=== PATIENT | female | born 2000 | race Hispanic/Latino ===

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

== ENCOUNTER 2018-05-25 21:40 | Emergency (ER) | payer MEDICAID ==
[2018-05-25 22:11] LABS: #Basophils 0.1 thou/uL (0.0-0.2); #Eosinphils 0.1 thou/uL (0.0-0.7); #Lymphocytes 2.4 thou/uL (1.20-3.40); #Monocytes 0.3 thou/uL (0.11-0.59); %Basophils 0.8 % (0.0-1.0); %Eosinophils 1.1 % (0.0-10.0); %Lymphocytes 35.2 % (28.0-48.0); %Monocytes 4.5 % (0.0-4.0); %Neutrophils 58.5 % (31.0-61.0); Hemoglobin 15.9 g/dL (12.0-16.0); Mean Corpuscular HGB CONC 32.9 g/dL (32.0-36.0); Mean Corpuscular Hemoglobin 30.7 pg (25.0-35.0); Mean Corpuscular Volume 93.4 fL (78.0-98.0); Mean Platelet Volume 11.2 fL (7.4-10.4); Platelet Count 233 thou/uL (130-400); RBC Distribution Width 12.2 % (11.5-14.5); Red Blood Cell (RBC) Count 5.18 mill/uL (4.00-5.20); White Blood Cell (WBC) Count 6.8 thou/uL (4.8-10.8)
[2018-05-25 22:12] LABS: Bilirubin Negative (Negative); Blood, Urine Negative (Negative); Clarity CLOUDY (Clear); Glucose, Urine (Dipstick) >=1000 mg/dL (Negative); Leukocyte Small (Negative); Nitrite Negative (Negative); Protein, Urine (Dipstick) Negative (Neg-Trace); Specific Gravity, Urine 1.032 (1.002-1.036); Urobilinogen 0.2 mg/dL (0.2-1.0)
[2018-05-25 22:14] LABS: Bacteria/HPF 1+ HPF (None Seen); Hyaline Casts/LPF 0-3 HYALINE CAST LPF (0-3 Hyaline); Pathc Cast-AUWi Flag 0.29 (0-2.49); Pregnancy Test - Urine (BHCG) Negative (Negative); Pregu Control Background? CLEAR/WHITE (CLR/WHITE); Pregu Control Bar Appear? YES (CONTROL BAR); RBC/HPF 0-3 HPF (0-3); Specific Gravity 1.032 (1.002-1.036); Squamous Epithelial 0-3 HPF (0-3); Yeast-AUWi Flag 19.6 (0-25.0)
[2018-05-25 22:31] LABS: ALT (SGPT) 11 U/L (8-55); AST (SGOT) 17 U/L (5-34); Albumin 4.4 g/dL (3.5-5.0); Alkaline Phosphatase 118 U/L (40-150); Anion Gap 27 mmol/L (10-20); BUN (Urea Nitrogen) 12 mg/dL (7.0-18.7); Bilirubin, Total 0.4 mg/dL (0.2-1.2); Calc. Creatinine Clearance 0 mL/min (70-130); Calcium 9.5 mg/dL (7.8-10.44); Carbon Dioxide 12 mmol/L (22-29); Chloride 96 mmol/L (98-107); Estimated GFR-MDRD 44; Globulin 3.8 g/dL (2.4-3.5); Glucose 446 mg/dL (70-105); Lipase 15 U/L (8-78); Potassium 4.3 mmol/L (3.5-5.1); Protein, Total 8.2 g/dL (6.0-8.3); Sodium 131 mmol/L (136-145)
[2018-05-25] MEDS ORDERED: Insulin Regular 300 UNITS/3 ML VIAL ONE (23:39)
[2018-05-25] MEDS ORDERED: Ondansetron PF 4 MG/2 ML Vial ONE (23:39)
[2018-05-25] MEDS ORDERED: cefTRIAXone\\ROCEPHIN 1 GM VIAL ONE (23:39)
== END 2018-05-26 01:34 | disposition home or self-care (01) ==
LOC: ERS 21:40
DX: N39.0 Urinary tract infection, site not specified (principal); E10.65 Type 1 diabetes mellitus with hyperglycemia
CPT/HCPCS: 36415; 36416; 80053; 81003; 81015; 81025; 83690; 85025; 87086; 96361; 96365; 96375; J0696; J1815; J2405

== ENCOUNTER 2018-09-23 00:55 | Emergency (ER) | payer MEDICAID ==
[2018-09-23] MEDS ORDERED: Ciprofloxacin HCL/Dexameth Otic Drops 7.5 ml Bottle ONE (01:13)
[2018-09-23] MEDS ORDERED: Ibuprofen 200 MG TAB ONE (01:13)
== END 2018-09-23 01:24 | disposition home or self-care (01) ==
LOC: ERS 00:55
DX: H60.91 Unspecified otitis externa, right ear (principal); H66.91 Otitis media, unspecified, right ear; E10.9 Type 1 diabetes mellitus without complications
CPT/HCPCS: 99282

== ENCOUNTER 2018-10-13 20:40 | Emergency (ER) | payer MEDICAID ==
[2018-10-13] MEDS ORDERED: Ondansetron ODT 4 MG TAB ONE (21:18)
[2018-10-13 21:53] LABS: Bilirubin Negative (Negative); Blood, Urine Negative (Negative); Clarity CLEAR (Clear); Glucose, Urine (Dipstick) >=1000 mg/dL (Negative); Leukocyte Negative (Negative); Nitrite Negative (Negative); Protein, Urine (Dipstick) Negative (Neg-Trace); Specific Gravity, Urine 1.038 (1.002-1.036); Urobilinogen 0.2 mg/dL (0.2-1.0)
[2018-10-13 22:31] LABS: #Basophils 0.1 thou/uL (0.0-0.2); #Eosinphils 0.1 thou/uL (0.0-0.7); #Lymphocytes 1.9 thou/uL (1.20-3.40); #Monocytes 0.3 thou/uL (0.11-0.59); #Neutrophils 2.6 thou/uL (1.40-6.50); %Basophils 1.3 % (0.0-1.0); %Eosinophils 1.6 % (0.0-10.0); %Lymphocytes 38.1 % (28.0-48.0); %Monocytes 5.7 % (0.0-4.0); %Neutrophils 53.4 % (31.0-61.0); Hemoglobin 14.1 g/dL (12.0-16.0); Mean Corpuscular HGB CONC 33.8 g/dL (32.0-36.0); Mean Corpuscular Hemoglobin 30.7 pg (25.0-35.0); Mean Corpuscular Volume 90.8 fL (78.0-98.0); Mean Platelet Volume 11.3 fL (7.4-10.4); Platelet Count 196 thou/uL (130-400); RBC Distribution Width 11.8 % (11.5-14.5); Red Blood Cell (RBC) Count 4.58 mill/uL (4.00-5.20); White Blood Cell (WBC) Count 4.9 thou/uL (4.8-10.8)
[2018-10-13 22:35] LABS: Base Excess-Venous 0.9 mmol/L (-2.0 to 3.0); Bicarbonate (HCO3v) 26.1 mmol/L (22.0-28.0); CO2 Tension (PvCO2) 42.5 mmHg (40.0-50.0); Calcium, Ionized 1.15 mmol/L (See Comments:); Chloride 98 mmol/L (98-107); Hemoglobin - Calc 14.1 g/dL (12.0-16.0); O2 Tension (PvO2) 64.1 mmHg (35.0-45.0); Potassium 3.6 mmol/L (3.5-5.1); Sodium 134 mmol/L (138-145); T. Carbon Dioxide 27.4 mmol/L (22.0-28.0); pH (Venous) 7.395 (7.320-7.430); vO2 Saturation-calc 91.9 % (60.0-85.0)
[2018-10-13 22:53] LABS: ALT (SGPT) 11 U/L (8-55); AST (SGOT) 14 U/L (5-34); Albumin 4.1 g/dL (3.5-5.0); Alkaline Phosphatase 95 U/L (40-150); Anion Gap 15 mmol/L (10-20); BUN (Urea Nitrogen) 12 mg/dL (7.0-18.7); Bilirubin, Total 0.4 mg/dL (0.2-1.2); Calc. Creatinine Clearance 0 mL/min (70-130); Calcium 9.7 mg/dL (7.8-10.44); Carbon Dioxide 27 mmol/L (22-29); Chloride 98 mmol/L (98-107); Estimated GFR-MDRD 84; Glucose 397 mg/dL (70-105); Potassium 3.8 mmol/L (3.5-5.1); Protein, Total 7.1 g/dL (6.0-8.3); Sodium 136 mmol/L (136-145)
== END 2018-10-14 00:03 | disposition home or self-care (01) ==
LOC: ERS 20:40
DX: E10.649 Type 1 diabetes mellitus with hypoglycemia without coma (principal); R11.2 Nausea with vomiting, unspecified
CPT/HCPCS: 36416; 80053; 81003; 82010; 82330; 82803; 85025; 94760; 96360; Q0162

== ENCOUNTER 2019-04-28 14:39 | Inpatient (IN) | payer MEDICAID, OTHER, SELFPAY ==
[2019-04-28] MEDS ORDERED: Insulin Regular 300 UNITS/3 ML VIAL ONE (15:24)
[2019-04-28 15:33] LABS: Hemoglobin 15.2 g/dL (12.0-16.0); Mean Corpuscular HGB CONC 33.2 g/dL (32.0-36.0); Mean Corpuscular Hemoglobin 31.1 pg (27.0-31.0); Mean Corpuscular Volume 93.6 fL (78.0-98.0); Mean Platelet Volume 12.2 fL (7.4-10.4); Platelet Count 184 thou/uL (130-400); RBC Distribution Width 13.1 % (11.5-14.5); Red Blood Cell (RBC) Count 4.89 mill/uL (4.20-5.40); White Blood Cell (WBC) Count 8.7 thou/uL (4.8-10.8)
[2019-04-28 15:48] LABS: Pregnancy Test - Urine (BHCG) Negative (Negative); Pregu Control Background? CLEAR/WHITE (CLR/WHITE); Pregu Control Bar Appear? YES (CONTROL BAR); Specific Gravity 1.019 (1.002-1.036)
[2019-04-28 15:49] LABS: #Lymphocytes 1.3 thou/uL (1.20-3.40); #Monocytes 0.4 thou/uL (0.11-0.59); #Neutrophils 6.9 thou/uL (1.40-6.50); %Basophils 0.3 % (0.0-1.0); %Eosinophils 0.5 % (0.0-10.0); %Lymphocytes 15.2 % (21.0-51.0); %Monocytes 4.6 % (0.0-10.0); %Neutrophils 79.4 % (42.0-75.0)
[2019-04-28 15:50] LABS: ALT (SGPT) 10 U/L (8-55); AST (SGOT) 13 U/L (5-34); Albumin 4.2 g/dL (3.5-5.0); Alkaline Phosphatase 105 U/L (40-110); BUN (Urea Nitrogen) 14 mg/dL (7.0-18.7); Bilirubin, Total 0.3 mg/dL (0.2-1.2); Calc. Creatinine Clearance 0 mL/min (70-130); Calcium 9.3 mg/dL (7.8-10.44); Chloride 94 mmol/L (98-107); Estimated GFR-MDRD 47; Globulin 3.2 g/dL (2.4-3.5); Large Platelets SLIGHT; MDiff Complete? YES; Platelet Morphology Comment Appears Adequate; Potassium 4.8 mmol/L (3.5-5.1); Protein, Total 7.4 g/dL (6.0-8.3); Sodium 126 mmol/L (136-145)
[2019-04-28 15:51] LABS: Squamous Epithelial 0-3 HPF (0-3)
[2019-04-28 15:52] LABS: Bacteria/HPF 1+ HPF (None Seen)
[2019-04-28 15:53] LABS: Bilirubin Negative (Negative); Blood, Urine Negative (Negative); Clarity Clear (Clear); Glucose, Urine (Dipstick) Greater than 1000 mg/dL (Negative); Leukocyte 250 Leu/uL (Negative); Nitrite Negative (Negative); Protein, Urine (Dipstick) Negative (Neg-Trace); Urobilinogen Normal mg/dL (Less than 2)
[2019-04-28 15:59] LABS: Carbon Dioxide Less than 8 mmol/L (22-29); Glucose 728 mg/dL (70-105)
[2019-04-28] MEDS ORDERED: Insulin Regular 100 units/100 ml in NS IVPB SCH (16:15)
--- NOTE | 2019-04-28 16:24 | PDOC.FPRHP ---
- History of Present Illness Chief Complaint: Abdominal Pain History of Present Illness: Pt is 19-yo F w/ pmhx of T1DM who started feeling "sick" this morning. Complains of nausea, headache, feeling thirst, heart palpatations, and lower abdominal pain. She states she was recently diagnosed w/ a UTI, and before that she was sick with allergies and upper respiratory symptoms. Her college roommates have been sick recently. 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 She takes lantus 30 units nightly and novolog on a sliding scale of 1 unit for every 30 points of glucose above 200 and 1:3 carb ratio. Her last DKA episode was a few years ago. She had DKA when first diagnosed and a few other times after that. Otherwise, she is usually very well controlled. She has not had her flu shot this year. Had flu shot last year. Up to date on all of her childhood vaccinations. ED Course: In ED received 2 liters of NS and started on insulin drip. Cultures ordered and rocephin given x1. 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 Denies smoking, drinking, drugs. - Review of Systems General: denies: fever/chills, weight/appetite/sleep changes, night sweats Eyes: denies: eye pain, vision changes ENT: denies: nasal congestion, rhinorrhea Respiratory: denies: cough, congestion, shortness of breath Cardiovascular: reports: palpitation. denies: chest pain, edema Gastrointestinal: reports: nausea, abdominal pain. denies: vomiting, diarrhea, constipation, GI bleeding Genitourinary: reports: dysuria (burning), polyuria. denies: discharge Skin: denies: rashes, itching Musculoskeletal: denies: pain, tenderness, swelling, arthritis/arthralgias Neurological: denies: syncope, seizure Psychological: denies: anxiety, depression - Vital signs BP: [130/81] HR: [101] RR: [16] Tmax: [98.7] Pox: [100]% on [RA] Wt: [68 kg] - Physical Exam Constitutional: NAD, awake, alert and oriented, well developed HEENT: normocephalic and atraumatic, PERRLA, EOMI, conjunctiva clear, no scleral icterus, grossly normal vision, normal nasal mucosa, MMM, oropharynx clear Neck: supple, trachea midline Heart: RRR, normal S1/S2, no murmurs/rubs/gallops Lungs: CTAB, no respiratory distress, good air movement Abdomen: soft, non-tender, bowel sounds present, no masses/distention Musculoskeletal: normal structure, normal tone, ROM grossly normal Neurological: no focal deficit Skin: no rash/lesions, capillary refill <2 seconds, no jaundice Heme/Lymphatic: no unusual bruising or bleeding, no purpura, no petechia Psychiatric: normal mood and affect, good judgment and insight, intact recent and remote memory FMR H&P: Results - Labs Result Diagrams: 04/28/19 15:12 04/28/19 15:12 Lab results: WBC 8.7 thou/uL (4.8-10.8) 04/28/19 15:12 Hgb 15.2 g/dL (12.0-16.0) 04/28/19 15:12 Hct 45.8 % (36.0-47.0) 04/28/19 15:12 MCV 93.6 fL (78.0-98.0) 04/28/19 15:12 Plt Count 184 thou/uL (130-400) 04/28/19 15:12 Neutrophils % 79.4 % (42.0-75.0) H 04/28/19 15:12 Sodium 126 mmol/L (136-145) L 04/28/19 15:12 Potassium 4.8 mmol/L (3.5-5.1) 04/28/19 15:12 Chloride 94 mmol/L (98-107) L 04/28/19 15:12 Carbon Dioxide Less than 8 mmol/L (22-29) L* 04/28/19 15:12 BUN 14 mg/dL (7.0-18.7) 04/28/19 15:12 Creatinine 1.41 mg/dL (0.6-1.1) H 04/28/19 15:12 Glucose 728 mg/dL (70-105) H* 04/28/19 15:12 Calcium 9.3 mg/dL (7.8-10.44) 04/28/19 15:12 Total Bilirubin 0.3 mg/dL (0.2-1.2) 04/28/19 15:12 AST 13 U/L (5-34) 04/28/19 15:12 ALT 10 U/L (8-55) 04/28/19 15:12 Alkaline Phosphatase 105 U/L (40-110) 04/28/19 15:12 Serum Total Protein 7.4 g/dL (6.0-8.3) 04/28/19 15:12 Albumin 4.2 g/dL (3.5-5.0) 04/28/19 15:12 Urine Ketones Greater than 150 mg/dL (Negative) A 04/28/19 14:43 Urine Blood Negative (Negative) 04/28/19 14:43 Urine Nitrite Negative (Negative) 04/28/19 14:43 Ur Leukocyte Esterase 250 Viviana/uL (Negative) A 04/28/19 14:43 Urine RBC 4-6 HPF (0-3) A 04/28/19 14:43 Urine WBC 4-6 HPF (0-3) A 04/28/19 14:43 Ur Squamous Epith Cells 0-3 HPF (0-3) 04/28/19 14:43 Urine Bacteria 1+ HPF (None Seen) 04/28/19 14:43 FMR H&P: A/P - Problem List (1) Dehydration Current Visit: No Status: Acute Code(s): E86.0 - DEHYDRATION (2) Metabolic acidosis Current Visit: No Status: Acute Code(s): E87.2 - ACIDOSIS (3) DM type 1 (diabetes mellitus, type 1) Current Visit: No Status: Chronic (4) KODI (acute kidney injury) Current Visit: No Status: Resolved Code(s): N17.9 - ACUTE KIDNEY FAILURE, UNSPECIFIED (5) DKA (diabetic ketoacidoses) Current Visit: No Status: Resolved Code(s): E13.10 - OTH DIABETES MELLITUS WITH KETOACIDOSIS WITHOUT COMA - Plan 19-year-old female w/ PMHx of T1DM here for: Diabetic Ketoacidosis AG - likely precipitated by reduced adherence to her insulin regimen, possibly also exacerbated by recent UTI and upper respiratory symptoms - Start DKA protocol - 3 L NS resuscitation, BMP q4h, Insulin drip, feed pt once anion gap resolves - Pending lipase to r/o pancreatitis UTI - Ceftriaxone one time given KODI Creatinine 1.41 - likely will resolve with fluid resuscitation Diet: NPO Fluids: 3 L bolus DVT Prophylaxis: SCD's Code Status: Full Dispo: pt will likely require > 2 midnight stay Disposition/LOS: Admit to inpatient, IMCU FMR H&P: Upper Level - Plan Date/Time: 04/28/19 4210 PCP: DIYA HPI: This is a 19 yo F being admitted for DKA. Started feeling malaise and nausea this AM. She states she has had abdominal pain and some dysuria for a day or 2 but the nausea was the most concerning symptom to her. She has had DM1 since she was 9 and has had DKA multiple times in the past but states that she has not had DKA in a few years. Her usual home regimen is lantus 30U qHS and Novolog 1:30 >200, 1:3 carb ratio. She states that she has not taken her insulin as usual for the past few days because she was stressed with some tests at school. Her roasterman is in [place]. Denies fevers, chills, sweats. Denies drinking alcohol. Denies gerd or epigastric pain. PHYSICAL EXAMINATION: General: NAD, alert and oriented x3 HEENT: PERRLA, EOMI, normal sclera, oropharynx without erythema or exudate Neck: Supple. Full ROM. Heart/Cardiovascular System: RRR, Cap refill < 3 seconds, no rub, no murmur Lungs/Respiratory System: CTA-B, non-labored respirations Abdomen/Gastro-Intestinal System: no abdominal tenderness, normal bowel sounds, no masses, no organomegaly Extremities: Warm extremities. No cyanosis or edema. Neuro: No gross deficits appreciated. CN 2-12 grossly intact Psychiatry: Awake, Alert and cooperative with exam Skin: No lesions, rashes, or ulcers Musculoskeletal: Full ROM A/P: # DKA, Type I DM - 3L NS ordered in ED, 10U novolog in ED - DKA protocol, initial K 4.8, AG 24, b-hydroxy 8.7 - lipase, mag pending - Suspect missing doses of insulin and questionable UTI are source - BMP q4 hours, plan for home dose of lantus in AM pending AG # UTI- symptomatic - 1G rocephin, Ucx pending Addendum - Attending - Attending Attestation Date/Time: 04/28/191813 I personally evaluated the patient and discussed the management with Dr. Moffett and Dr. Sheridan I agree with the History, Examination, Assessment and Plan documented above with any addition or exceptions noted below. 19 yo G0 female here for DKA. Patient has history of Type I DM. Has been diagnosed since she was a child. Currently on Lantus 30 u qday and aspart SSI per carb ratio. Has roasterman in [place]. Here for college. Student at [employer]. [employer]. Has been studying for midterms and reports not paying attention to her health. States she has been trying to prevent this all week but knew she had to try to study and be present for exams. This morning just felt too bad to go to class. Reports N/V. Last seen by chidi in November. A1c was 13%. Denies history of complications or co-morbidities related to DM. States last episode of DKA was 3 to 4 years ago. States she is much better controlled on a pump and closed loop system but due to an insurance change unable to afford. Last eye exam in November. Chidi has been telling her to establish care locally but she just has not made the time. VS, labs, imaging reviewed. Agree with PE as documented by resident. 1. DKA in T1DM: Continue insulin protocol. Trend labs. Add ABG. Adjust home insulin as needed. Etiology is related to increase stress and lack of medical compliance. UPT negative. No evidence of symptoms of infection. Would hold antibx. Rule out thyroid dz. 2. KODI: Continue IVF hydration. Trend labs. Pre-renal. No prior hx of renal dz. Admit. Monitor. DKA protocol. Trend labs. ABG stat. ABrayMD
[2019-04-28] MEDS ORDERED: cefTRIAXone\\ROCEPHIN 1 GM VIAL ONE (19:02)
[2019-04-28] MEDS ORDERED: HUMULIN R 100 UNITS in Sodium Chloride 0.9% 100 ML IVPB SCH (19:50)
[2019-04-28] MEDS ORDERED: Dextrose 5 %-0.45 % NaCl 1,000 ML IV PRN (19:50)
[2019-04-28] MEDS ORDERED: Sodium Chloride 0.9% 1,000 ML IV PRN ×4 (19:50)
[2019-04-28] MEDS ORDERED: NS 0.9% w/ 20 MEQ KCL 1,000 ML IV PRN ×2 (19:50)
[2019-04-28] MEDS ORDERED: CCU Electrolyte Replacement 1 EACH IVPB ONE (19:50)
[2019-04-28] MEDS ORDERED: Ondansetron ODT 4 MG TAB PO PRN (19:50)
[2019-04-28] MEDS ORDERED: Potassium Phosphate 9 MMOL in Sodium Chloride 0.9% 100 ML IVPB PRN (19:53)
[2019-04-28] MEDS ORDERED: PHOS-NAK 1 PKT PACK PO PRN ×2 (19:53)
[2019-04-28] MEDS ORDERED: Potassium Chloride 40 MEQ in Premix Bag 1 BAG IVPB PRN (19:53)
[2019-04-28] MEDS ORDERED: Potassium Phosphate 12 MMOL in Sodium Chloride 0.9% 250 ML 250 ML IV PRN (19:53)
[2019-04-28] MEDS ORDERED: Potassium Phosphate 15 MMOL in Sodium Chloride 0.9% 250 ML 250 ML IV PRN (19:53)
[2019-04-28] MEDS ORDERED: Potassium Chloride 20 MEQ TAB PO PRN (19:53)
[2019-04-28] MEDS ORDERED: Potassium Chloride 40 MEQ in Sodium Chloride 0.9% 250 ML 250 ML IVPB PRN (19:53)
[2019-04-28] MEDS ORDERED: Magnesium Oxide 400 MG TAB PO PRN ×2 (19:53)
[2019-04-28] MEDS ORDERED: CCU ELECTROLYTE REPLACEMENT PROTOCOL FS PRN (19:53)
[2019-04-28] MEDS ORDERED: Magnesium 2 GM/50 ML 2 GM in Premix Bag 1 BAG IVPB PRN (19:53)
[2019-04-28 20:09] VITALS: BMI 29.6
[2019-04-28 20:13] LABS: Actual Bicarbonate (HCO3v) 14 mEq/L (22-28); Base Excess -12.7 mEq/L (-2.0 to +3.0); Calcium, Ionized 1.11 mmol/L (1.16-1.32); Chloride (ABG LAB) 102 mmol/L (98-106); Hemoglobin (Hb) 14.6 g/dL (11.7-15.5); Potassium - ABG Lab 3.43 mmol/L (3.70-5.30); Sodium 133.4 mmol/L (133-146)
[2019-04-28 20:22] LABS: pH (venous) 7.21 (7.32-7.43)
[2019-04-28] MEDS: D5 1/2 NS w/20 mEq KCL 1,000 ML IV PRN (20:31)
[2019-04-28 20:40] LABS: Anion Gap 19 mmol/L (10-20); BUN (Urea Nitrogen) 12 mg/dL (7.0-18.7); Calc. Creatinine Clearance 101 mL/min (70-130); Calcium 7.8 mg/dL (7.8-10.44); Carbon Dioxide 13 mmol/L (22-29); Chloride 105 mmol/L (98-107); Estimated GFR-MDRD 71; Glucose 357 mg/dL (70-105); Potassium 3.5 mmol/L (3.5-5.1); Sodium 133 mmol/L (136-145)
[2019-04-29] MEDS: D5 1/2 NS w/20 mEq KCL 1,000 ML IV PRN ×3 (00:21→08:37)
[2019-04-29 01:44] LABS: Anion Gap 14 mmol/L (10-20); BUN (Urea Nitrogen) 11 mg/dL (7.0-18.7); Calc. Creatinine Clearance 92 mL/min (70-130); Calcium 7.6 mg/dL (7.8-10.44); Carbon Dioxide 15 mmol/L (22-29); Chloride 105 mmol/L (98-107); Estimated GFR-MDRD 63; Glucose 480 mg/dL (70-105); Potassium 3.4 mmol/L (3.5-5.1); Sodium 131 mmol/L (136-145)
[2019-04-29 07:12] LABS: Anion Gap 11 mmol/L (10-20); BUN (Urea Nitrogen) 8 mg/dL (7.0-18.7); Calc. Creatinine Clearance 145 mL/min (70-130); Calcium 7.7 mg/dL (7.8-10.44); Carbon Dioxide 18 mmol/L (22-29); Chloride 111 mmol/L (98-107); Estimated GFR-MDRD Greater than 90; Glucose 156 mg/dL (70-105); Potassium 3.2 mmol/L (3.5-5.1); Sodium 137 mmol/L (136-145)
--- NOTE | 2019-04-29 07:12 | PDOC.FM ---
- Subjective Subjective: Pt is feeling alright this morning. + nausea, no vomiting. Noticed her hands are swollen, likely due to the fluids we are giving her. Has remained NPO overnight. Denies abdominal pain, muscle pain, and leg pain. Does not have questions at this time. - Objective MAR Reviewed: Yes Vital Signs & Weight: Vital Signs (12 hours) Temp 04/29/19 04:08 98.9 F 04/29/19 00:19 98.1 F 04/28/19 19:50 99.2 F Weight Weight 71.2 kg Most Recent Monitor Data Heart Rate from ECG 76 NIBP 97/58 NIBP BP-Mean 71 Respiration from ECG 18 SpO2 98 I&O: 04/28/19 04/29/19 04/30/19 06:59 06:59 06:59 Intake Total 4806 Output Total 2950 Balance 1856 Result Diagrams: 04/29/19 10:00 04/29/19 10:00 Phys Exam - Physical Examination Constitutional: NAD Respiratory: no wheezing, clear to auscultation bilateral Cardiovascular: RRR, no significant murmur Gastrointestinal: soft, non-tender, no distention Musculoskeletal: edema present (nonpitting in upper extremities) Neurological: non-focal Psychiatric: normal affect, A&O x 3 Skin: no rash, normal turgor Dx/Plan (1) Dehydration Code(s): E86.0 - DEHYDRATION Status: Acute (2) Metabolic acidosis Code(s): E87.2 - ACIDOSIS Status: Acute (3) DM type 1 (diabetes mellitus, type 1) Status: Chronic - Plan Plan: 19-year-old female w/ PMHx of T1DM here for: Diabetic Ketoacidosis AG now closed at 11 - likely precipitated by reduced adherence to her insulin regimen, possibly also exacerbated by recent UTI and upper respiratory symptoms - Start DKA protocol - 3 L NS resuscitation, BMP q4h, Insulin drip, feed pt once anion gap resolves and begin subcutaneous insulin - Pending lipase to r/o pancreatitis - may begin lantus, home dose was 30 units qhs Hypocalcemia Hypokalemia - potassium now 3.2, will replace - calcium 7.6, will monitor for now UTI - Ceftriaxone one time given KODI, resolved, likely 2/2 dehydration - Creatinine 1.41, improving and now at 0.69 - likely will resolve with fluid resuscitation Diet: Clear liquid at breakfast Fluids: 3 L bolus DVT Prophylaxis: SCDs Code Status: Full Dispo: pt will likely require > 2 midnight stay Addendum - Attending - Attending Attestation Date/Time: 04/29/19 [id number] I personally evaluated the patient and discussed the management with Dr. Monet I agree with the History, Examination, Assessment and Plan documented above with any addition or exceptions noted below - patient without complaints. Feeling better. Started on clears. Afebrile VSS. A/P: 1) DKA- resolved; started on basal insulin and will d/c insulin drip. Transfer to medical floor. 2) Possible UTI- urine culture pending. Continue current abx
[2019-04-29] MEDS ORDERED: HumaLOG 300 UNITS/3 ML VIAL SC PRN (07:52)
[2019-04-29] MEDS ORDERED: Dextrose 50% Abboject 50 ML SYRINGE SLOW IVP PRN (07:52)
[2019-04-29] MEDS ORDERED: Dextrose 5% in Water 1,000 ML IV PRN (07:52)
[2019-04-29] MEDS ORDERED: Insulin Glargine 30 UNITS in Pre-Filled Syringe 1 EACH SC SCH (09:00)
[2019-04-29] MEDS ORDERED: FLU VACC QS2019-20(6MOS UP)/PF 60 MCG/0.5 ML SYRINGE IM ONE (09:00)
[2019-04-29 10:29] LABS: #Eosinphils 0.1 thou/uL (0.0-0.7); #Monocytes 0.5 thou/uL (0.11-0.59); #Neutrophils 2.3 thou/uL (1.40-6.50); %Basophils 0.7 % (0.0-1.0); %Eosinophils 1.7 % (0.0-10.0); %Monocytes 10.4 % (0.0-10.0); %Neutrophils 47.2 % (42.0-75.0); Hemoglobin 12.9 g/dL (12.0-16.0); Mean Corpuscular Volume 91.1 fL (78.0-98.0); Mean Platelet Volume 11.5 fL (7.4-10.4); Platelet Count 153 thou/uL (130-400); RBC Distribution Width 13.1 % (11.5-14.5); Red Blood Cell (RBC) Count 4.18 mill/uL (4.20-5.40); White Blood Cell (WBC) Count 4.9 thou/uL (4.8-10.8)
[2019-04-29 10:47] LABS: Anion Gap 12 mmol/L (10-20); BUN (Urea Nitrogen) 7 mg/dL (7.0-18.7); Calc. Creatinine Clearance 167 mL/min (70-130); Calcium 7.8 mg/dL (7.8-10.44); Carbon Dioxide 18 mmol/L (22-29); Chloride 110 mmol/L (98-107); Estimated GFR-MDRD Greater than 90; Glucose 152 mg/dL (70-105); Potassium 3.4 mmol/L (3.5-5.1); Sodium 137 mmol/L (136-145)
[2019-04-29 10:59] LABS: Hemoglobin A1c 13.3 % (4.0-6.0)
[2019-04-29] MEDS: Lactated Ringer's 1,000 ML IV SCH ×2 (11:03→16:13)
[2019-04-29] MEDS ORDERED: Acetaminophen 500 MG TAB PO PRN (15:21)
--- NOTE | 2019-04-29 16:59 | PDOC.EVN ---
Event Note - Event Note Event Note: called for glucose >400 added 5U lantus nightime dose aggressive sliding scale added BMP nurses states patient ate oatmeal with raisins for lunch and used "equal" sugar replacement
[2019-04-29] MEDS: HumaLOG 300 UNITS/3 ML VIAL SC PRN ×3 (17:13→22:20)
[2019-04-29] MEDS ORDERED: Insulin Glargine 5 UNITS in Pre-Filled Syringe 1 EACH SC SCH (18:00)
[2019-04-29 20:09] LABS: Anion Gap 18 mmol/L (10-20); BUN (Urea Nitrogen) 10 mg/dL (7.0-18.7); Calc. Creatinine Clearance 106 mL/min (70-130); Calcium 8.9 mg/dL (7.8-10.44); Carbon Dioxide 15 mmol/L (22-29); Chloride 99 mmol/L (98-107); Estimated GFR-MDRD 75; Glucose 514 mg/dL (70-105); Potassium 4.3 mmol/L (3.5-5.1); Sodium 128 mmol/L (136-145)
[2019-04-29] MEDS ORDERED: Insulin Glargine 15 UNITS in Pre-Filled Syringe 1 EACH SC SCH (21:00)
[2019-04-30] MEDS: HumaLOG 300 UNITS/3 ML VIAL SC PRN ×2 (00:43→05:52)
[2019-04-30] MEDS: Lactated Ringer's 1,000 ML IV SCH ×2 (00:45→05:53)
--- NOTE | 2019-04-30 06:27 | PDOC.FM ---
- Subjective Subjective: Pt is feeling good, asymptomatic. Tells me her A1C in November when she saw endocrinology was 13.1. Informed her it was currently 13.3. She required 54 units of novolog on an aggressive sliding scale overnight. Had 35 units lantus yesterday. She does not have appt w/ endo in [place] anytime soon. - Objective MAR Reviewed: Yes Vital Signs & Weight: Vital Signs (12 hours) Temp Pulse Resp BP Pulse Ox 04/29/19 21:30 97.9 F 96 16 99/67 99 04/29/19 20:40 86 16 113/67 94 L 04/29/19 19:16 98.6 F Weight Weight 71.2 kg Most Recent Monitor Data Heart Rate from ECG 91 NIBP 109/64 NIBP BP-Mean 79 Respiration from ECG 11 SpO2 98 I&O: 04/28/19 04/29/19 04/30/19 06:59 06:59 06:59 Intake Total 4806 2520 Output Total 2950 Balance 1856 2520 Result Diagrams: 04/29/19 10:00 04/30/19 07:02 Phys Exam - Physical Examination Constitutional: NAD Respiratory: no wheezing, clear to auscultation bilateral Cardiovascular: RRR, no significant murmur Gastrointestinal: soft, non-tender Psychiatric: normal affect, A&O x 3 Dx/Plan (1) Dehydration Code(s): E86.0 - DEHYDRATION Status: Acute (2) Metabolic acidosis Code(s): E87.2 - ACIDOSIS Status: Acute (3) DM type 1 (diabetes mellitus, type 1) Status: Chronic - Plan Plan: 19-year-old female w/ PMHx of T1DM here for: Diabetic Ketoacidosis AG closed - likely precipitated by reduced adherence to her insulin regimen, possibly also exacerbated by recent UTI and upper respiratory symptoms - pt needs increased insulin requirements: propose 60 units lantus and 10 units novolog with each meal. Hypocalcemia Hypokalemia - monitor UTI - Ceftriaxone one time given KODI, resolved, likely 2/2 dehydration - monitor Diet: regular Fluids: d/c DVT Prophylaxis: SCDs Code Status: Full Dispo: medical, inpatient. Pt may likely be discharged home today. Will need close f/u as outpatient. Addendum - Attending - Attending Attestation Date/Time: 04/30/19 3080 I personally evaluated the patient and discussed the management with Dr. Monet I agree with the History, Examination, Assessment and Plan documented above with any addition or exceptions noted below - Patient without complaints; feeling better. Afebrile VSS. A/P: 10 DKA -resolved. 2) Uncontrolled DM type 1 - insulin adjusted based on additional coverage that was needed. Plan to d/c hoe with close follow-up.
[2019-04-30 08:02] VITALS: BP 112/73; TEMP 98.1
[2019-04-30 08:13] LABS: Anion Gap 9 mmol/L (10-20); BUN (Urea Nitrogen) 9 mg/dL (7.0-18.7); Calc. Creatinine Clearance 147 mL/min (70-130); Calcium 8.4 mg/dL (7.8-10.44); Carbon Dioxide 27 mmol/L (22-29); Chloride 104 mmol/L (98-107); Estimated GFR-MDRD Greater than 90; Glucose 222 mg/dL (70-105); Potassium 3.1 mmol/L (3.5-5.1); Sodium 137 mmol/L (136-145)
[2019-04-30] MEDS ORDERED: Potassium Chloride 20 MEQ TAB PO SCH (09:00)
[2019-04-30] MEDS ORDERED: cefTRIAXone\\ROCEPHIN 1 GM in Sodium Chloride 0.9% 100 ML IVPB ONE (09:00)
--- NOTE | 2019-04-30 11:03 | PDOC.BPN ---
- Brief Progress Note Mima Shelton was hospitalized for a severe illness related to her chronic medical condition from 04/28/2019 to 04/30/2019. Please excuse her from missed exams, classes, assignments, etc. and allow her adequate time to complete them without penalty. Please call with any questions at [phone]. Thank you. Katiana Monet MD [facility].
== END 2019-04-30 17:02 | disposition home or self-care (01) | DRG 638 ==
LOC: ERS 14:39 → IMCU/EMU 16:32 → T4-A 19:53
PROVIDERS: ADMIT Student in an Organized Health Care Education/Training Program; ATTEND Student in an Organized Health Care Education/Training Program
DX: E10.10 Type 1 diabetes mellitus with ketoacidosis without coma (principal); N30.00 Acute cystitis without hematuria; N17.9 Acute kidney failure, unspecified; E86.0 Dehydration; E83.51 Hypocalcemia; E87.6 Hypokalemia; Z79.4 Long term (current) use of insulin
CPT/HCPCS: 36415; 36416; 80048; 80053; 81003; 81015; 81025; 82010; 82805; 83036; 85025; 87077; 87086; 96361; 96365; 96366; 96376; J0696; J1815; J3490

== ENCOUNTER 2019-09-14 12:17 | Emergency (ER) | payer MEDICAID, SELFPAY ==
[2019-09-14 12:59] LABS: #Lymphocytes 1.3 thou/uL (1.20-3.40); #Monocytes 0.3 thou/uL (0.11-0.59); #Neutrophils 5.2 thou/uL (1.40-6.50); %Basophils 0.7 % (0.0-1.0); %Eosinophils 0.3 % (0.0-10.0); %Lymphocytes 19.3 % (21.0-51.0); %Neutrophils 75.7 % (42.0-75.0); Hemoglobin 13.8 g/dL (12.0-16.0); Mean Corpuscular HGB CONC 32.9 g/dL (32.0-36.0); Mean Corpuscular Hemoglobin 31.7 pg (27.0-31.0); Mean Corpuscular Volume 96.4 fL (78.0-98.0); Mean Platelet Volume 11.1 fL (7.4-10.4); Platelet Count 203 thou/uL (130-400); RBC Distribution Width 12.8 % (11.5-14.5); Red Blood Cell (RBC) Count 4.34 mill/uL (4.20-5.40); White Blood Cell (WBC) Count 6.8 thou/uL (4.8-10.8)
[2019-09-14 13:22] LABS: ALT (SGPT) 25 U/L (8-55); AST (SGOT) 27 U/L (5-34); Albumin 4.1 g/dL (3.5-5.0); Alkaline Phosphatase 153 U/L (40-110); Anion Gap 26 mmol/L (10-20); BUN (Urea Nitrogen) 15 mg/dL (7.0-18.7); Bilirubin, Total 0.4 mg/dL (0.2-1.2); Calc. Creatinine Clearance 0 mL/min (70-130); Calcium 9.4 mg/dL (7.8-10.44); Carbon Dioxide 14 mmol/L (22-29); Chloride 99 mmol/L (98-107); Estimated GFR-MDRD 80; Globulin 2.8 g/dL (2.4-3.5); Glucose 252 mg/dL (70-105); Magnesium 1.5 mg/dL (1.6-2.6); Potassium 4.1 mmol/L (3.5-5.1); Protein, Total 6.9 g/dL (6.0-8.3); Sodium 135 mmol/L (136-145)
[2019-09-14] MEDS ORDERED: HUMULIN R 100 UNITS in Sodium Chloride 0.9% 100 ML IVPB SCH (14:30)
[2019-09-14 15:23] LABS: Anion Gap 15 mmol/L (10-20); BUN (Urea Nitrogen) 12 mg/dL (7.0-18.7); Calc. Creatinine Clearance 0 mL/min (70-130); Calcium 8.3 mg/dL (7.8-10.44); Carbon Dioxide 21 mmol/L (22-29); Chloride 107 mmol/L (98-107); Estimated GFR-MDRD Greater than 90; Glucose 121 mg/dL (70-105); Potassium 3.7 mmol/L (3.5-5.1); Sodium 139 mmol/L (136-145)
== END 2019-09-14 15:54 | disposition home or self-care (01) ==
LOC: ERS 12:17
DX: E10.65 Type 1 diabetes mellitus with hyperglycemia (principal)
CPT/HCPCS: 36415; 36416; 80053; 82010; 83735; 85025; 96360; 96361

== ENCOUNTER 2020-01-27 11:04 | Emergency (ER) | payer OTHER, SELFPAY ==
[2020-01-28 12:35] LABS: SARS-CoV-2 MS2 Positive; SARS-CoV-2 N Gene Positive; SARS-CoV-2 S Gene Positive; SARS-CoV-2 orf1ab Positive
== END 2020-01-27 13:00 | disposition home or self-care (01) ==
LOC: ERS 11:04
DX: U07.1 COVID-19 (principal); E10.9 Type 1 diabetes mellitus without complications
CPT/HCPCS: 87635; 93005; U0003